=== PATIENT | male | born 1975 | race African-American/Black ===

== ENCOUNTER 2016-06-27 21:08 | Emergency (ER) | payer MEDICAID, OTHER ==
[2016-06-27] MEDS ORDERED: IOPAMIDOL 370 (76%) 100 ML VIAL IV ONE (21:09)
[2016-06-27 22:03] LABS: URINE BILIRUBIN NEGATIVE (NEGATIVE); URINE BLOOD TRACE (NEGATIVE); URINE GLUCOSE (UA) NEGATIVE (NEGATIVE); URINE LEUKOCYTE ESTERASE NEGATIVE (NEGATIVE); URINE NITRITE NEGATIVE (NEGATIVE); URINE PROTEIN 1+ (NEGATIVE); URINE UROBILINOGEN NORMAL (0-1 mg/dl)
[2016-06-27 22:08] LABS: URINE APPEARANCE CLEAR; URINE COLOR YELLOW
[2016-06-27 22:25] LABS: URINE BACTERIA 0; URINE EPITHELIAL CELLS 0-1 /hpf; URINE RBC 0-2 /hpf; URINE WBC 0-1 /hpf
[2016-06-27] MEDS ORDERED: ACETAMINOPHEN 325 MG TABLET ONE (22:46)
[2016-06-27] MEDS ORDERED: MORPHINE SULFATE 4 MG/ML SYRINGE ONE (22:46)
[2016-06-27 23:03] LABS: ABSOLUTE NEUTROPHIL COUNT 5.6 K/mm3 (1.8-7.7); BASO % 0.4 % (0.2-1.0); EOS % 0.5 % (0.9-2.9); HEMATOCRIT 35.1 % (32.0-52.0); IMM NEUT% 0.4 % (0-1); LYMPH # 1.6 (1.0-4.8); MEAN CELL VOLUME 93.6 fl (80.0-94.0); MEAN CORPUSCULAR HGB CONC 34.2 g/dl (33.0-37.0); MEAN PLATELET VOLUME 9.4 fl (7.4-10.4); MONO # 0.4 (0.0-0.8); MONO % 5.6 % (4-12); NEUT % 72.1 % (43-75); PLATELET COUNT 212 K/mm3 (130-400); RED CELL DISTRIBUTION WIDTH 13.5 % (11.5-14.5)
[2016-06-27 23:12] LABS: ALB/GLOB RATIO 1.4 (>1.0); ALBUMIN 4.5 gm/dL (3.5-5.7); CALCIUM 9.2 mg/dL (8.6-10.3)
--- NOTE | 2016-06-28 06:33 | CT ---
ABD/PELVIS W/ CON COMPARISON: None. HISTORY: Bilateral flank pain. Technique: Intravenous injection 100 mL Isovue 370. Using a [employer] [place] Aquilion [address] scanner, images were obtained from the diaphragm to the floor the pelvis. An automated dose reduction technique was used to minimize patient radiation dose. Dose information: CTDIvol (mGy): 8.00 DLP(mGycm): 373.40 FINDINGS: Lung bases: Normal. Inferior mediastinum and heart: Normal. Liver: Normal. Gallbladder:Normal. Bile ducts: Normal. Pancreas: Normal. Spleen: Normal. Adrenal glands: Normal. Kidneys: Normal. Ureters: Normal Urinary bladder: Normal. Prostate gland and seminal vesicles: Normal. Blood vessels: Normal Lymph nodes: Normal Stomach: Normal Duodenum: Normal Small intestine: Normal Appendix: Normal Colon: Normal Abdominal wall and supporting musculature: Normal Bones: Normal IMPRESSION: Normal study. Preliminary report by [employer] radiologist Benedicto Beck M.D. 06/27/2016 at 23:31
== END 2016-06-28 00:36 | disposition home or self-care (01) ==
LOC: ED 21:08
DX: R10.9 Unspecified abdominal pain (principal); R11.0 Nausea; I10 Essential (primary) hypertension; F17.210 Nicotine dependence, cigarettes, uncomplicated
CPT/HCPCS: 83690; 85025; 80053; 81001; 74177; 99284 ×2; 96374; 96361 ×2; 93005; J2270; A9270; Q9967